=== PATIENT | male | born 1995 | race Two or more races ===

== ENCOUNTER 2017-06-13 10:32 | Emergency (ER) | payer MEDICAID ==
[~2017-06-13] VITALS: Ht 177.8 cm; Wt 74.8 kg
[~2017-06-13 10:32] MED LIST: AMOX500C2; HYDR-2598; OLIVE LEAF EXTRACT; ONDANSETRON HCL 8 MG TABLET; VALA1TAB28; [UNRECOGNIZED DRUG - OTHER]
[2017-06-13 10:40] VITALS: BP 137/87
== END 2017-06-13 11:45 | disposition left against medical advice (07) ==
LOC: ER 10:32
DX: R51 Headache (principal); Z53.21 Procedure and treatment not carried out due to patient leaving prior to being seen by health care provider

== ENCOUNTER 2024-05-28 15:26 | Emergency (ER) | payer SELFPAY ==
[~2024-05-28] VITALS: Ht 177.8 cm; Wt 68.1 kg
[~2024-05-28 15:26] MED LIST changes: +VALA1TAB; -VALA1TAB28
[2024-05-28 15:30] VITALS: BP 128/73; PULSE 100; RESP 20; O2SAT 99
[2024-05-28] MEDS ORDERED: SODIUM CHLORIDE 0.9% 1,000 ML IV ONE (15:45)
[2024-05-28] MEDS ORDERED: THIAMINE 100mg/ml INJ (200mg/2ml VIAL) IV ONE (15:45)
[2024-05-28] MEDS ORDERED: LORazepam 2MG/ML-1ML VIAL IV ONE (15:45)
[2024-05-28] MEDS: SODIUM CHLORIDE 0.9% 1,000 ML IV ONE (16:12)
== END 2024-05-28 16:19 | disposition left against medical advice (07) ==
LOC: EDBD 15:26 → ER 15:33
DX: F41.9 Anxiety disorder, unspecified (principal); F10.10 Alcohol abuse, uncomplicated; J45.909 Unspecified asthma, uncomplicated; Z88.1 Allergy status to other antibiotic agents; Z88.8 Allergy status to other drugs, medicaments and biological substances; Z88.2 Allergy status to sulfonamides; Z79.899 Other long term (current) drug therapy

== ENCOUNTER 2024-06-16 21:13 | Emergency (ER) | payer MEDICAID ==
[~2024-06-16] VITALS: Ht 177.8 cm; Wt 82.5 kg
[2024-06-16] MEDS: KETOROLAC TROMETH 60MG/2ML VIAL IM ONE (22:21)
[2024-06-16] MEDS: HYDROcodone-ACET 5/325MG TAB PO ONE (22:22)
[2024-06-16 22:50] VITALS: BP 129/96; PULSE 78; RESP 19; TEMP 97.9; O2SAT 97
[2024-06-17] MEDS ORDERED: IBUP-1456 PO (00:08)
[2024-06-17] MEDS ORDERED: HYDR2.5C39 TOP (00:08)
--- NOTE | 2024-06-17 00:08 | ED.PDOC ---
GI ASSESSMENT HPI Comments This is a 29-year-old male presents to the ED chief complaint rectal pain x1 week. Patient states history of hemorrhoids, notes itchiness, burning, and rectal pain. Reports intermittent constipation. Reports blood on the toilet paper. Denies gross blood or clots. 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 He denies chest pain, shortness of breath, difficulty breathing, or gross amount of blood in toilet or clots. Chief Complaint: Rectal Pain Time Seen by MD: 21:40 Primary Care Provider: LOIDA HERMAN Reviewed Notes: Nurses Notes, Medications, Allergies Allergies: Coded Allergies: Amphotericin B (Verified Allergy, Severe, ANAPHALAXIS, 06/30/11) Sulfa Antibiotics (Verified Allergy, Severe, 05/22/15) Vancomycin (Verified Allergy, Severe, RED MAN SYNDROME, 06/30/11) Ampicillin (Verified Allergy, Unknown, 06/13/17) Home Meds Active Scripts Ibuprofen (Ibuprofen) 800 Mg Tab, 1 TAB PO TID PRN for 5 Days, #15 TAB 1 Refill Prov:ALISE MACHUCA FUTURES TRADER 06/17/24 Hydrocortisone Base (Anusol-Hc) 2.5 % Cre, 1 APPLIC TOP BID for 7 Days, #30 GRAMS 1 Refill Prov:ALISE MACHUCA FUTURES TRADER 06/17/24 Reported Medications [Hydrocodone/Ace1 Ta9] (Hydrocodone/Acetaminophen) 1 TAB TAB No Conflict Check, TAB 08/28/12 [Ondansetron Hcl 8 Mg Tablet] No Conflict Check 08/28/12 [[id number] Mg] (Amoxicillin) 500 MG CAP No Conflict Check, MG 08/28/12 Shitake Mushroom (Shitake Mushroom) Mushroom Pow 06/30/11 [[place]ard Extract] No Conflict Check 06/30/11 Valacyclovir Hcl (Valtrex) 1 Gm Tab 06/30/11 Information Source: Patient Mode of Arrival: Ambulatory Past Medical History PAST MEDICAL HISTORY: Asthma Past Medical History (Other): Leukemia in remission x 12 years Surgical History: Denies all surgeries Family History Family History: Unknown Social History Smoker: Non-Smoker Alcohol: Heavy Drugs: Denies Drug Use Lives In: Home Constitutional: denies: chills, diaphoresis, fatigue, fever, malaise, sweats, weakness, others EENTM: denies: blurred vision, double vision, ear bleeding, ear discharge, ear drainage, ear pain, ear ringing, eye pain, eye redness, hearing loss, mouth pain, mouth swelling, nasal discharge, nose bleeding, nose congestion, nose pain, photophobia, tearing, throat pain, throat swelling, voice changes, others Respiratory: denies: cough, hemoptysis, orthopnea, SOB at rest, shortness of breath, SOB with excertion, stridor, wheezing, others Cardiovascular: denies: chest pain, dizzy spells, diaphoresis, Dyspnea on exertion, edema, irregular heart beat, left arm pain, lightheadedness, palpitations, PND, syncope, others Gastrointestinal: reports: rectal bleeding, rectal pain; denies: abdomen distended, abdominal pain, blood streaked bowels, constipated, diarrhea, dysphagia, difficulty swallowing, hematemesis, melena, nausea, poor appetite, poor fluid intake, vomiting, others Genitourinary: denies: burning, dysuria, flank pain, frequency, hematuria, incontinence, penile discharge, penile sore, pain, testicle pain, testicle swelling, urgency, others Neurological: denies: dizziness, fainting, headache, left sided numbness, left sided weakness, numbness, paresthesia, pre-existing deficit, right sided numbness, right sided weakness, seizure, speech problems, tingling, tremors, weakness, others Musculoskeletal: denies: back pain, gout, joint pain, joint swelling, muscle pain, muscle stiffness, neck pain, others Integumetry: denies: bruises, change in color, change in hair/nails, dryness, laceration, lesions, lumps, rash, wounds, others Allergic/Immunocompromised: denies: Difficulty Healing, Frequent Infections, Hives, Itching, others Hematologic/Lymphatic: denies: anemia, blood clots, easy bleeding, easy bruising, swollen glands, others Endocrine: denies: excessive hunger, excessive sweating, excessive thirst, excessive urination, flushing, intolerance to cold, intolerance to heat, unexplained weight gain, unexplained weight loss, others Psychiatric: denies: anxiety, bipolar disorder, depression, hopeless, panic disorder, schizophrenia, sleepless, suicidal, others Physical Exam General Appearance: No Apparent Distress, Normal HEENT: Pharynx Normal Neck: Full Range of Motion, Non-Tender Respiratory: Lungs Clear, No Respiratory Distress, Normal Breath Sounds Cardiovascular: No Murmur, Normal Peripheral Pulses, Regular Rate/Rhythm Breast Exam: Deferred Gastrointestinal: No Organomegaly, Non Tender, No Pulsatile Mass, Normal Bowel Sounds, Soft Genitalia: Deferred Pelvic: Deferred Rectal: Hemorrhoids (Non incarcerated hemorrhoid external) Extremities: Normal capillary refill, Normal inspection, Normal range of motion, Non-tender Musculoskeletal : Apperance: Normal Neurologic: Alert, hand sewer shoes II-XII nml as Tested, No Motor Deficits, Normal Affect, Normal Mood, No Sensory Deficits Cerebellar Function: Normal Reflexes: Normal Skin: Dry, Normal Color, Warm Lymphatic: No Adenopathy Was a procedure done? Was a procedure done?: No GI differential Dx Differential Diagnosis: Bacterial X-Ray, Labs, Meds, VS Vital Signs Date Time Temp Pulse Resp B/P (MAP) Pulse Ox O2 Delivery O2 Flow Rate FiO2 06/16/24 22:50 97.9 78 19 129/96 (107) 97 97.9 06/16/24 22:50 78 19 97 Room Air 06/16/24 21:22 98.3 80 16 140/85 (103) 99 Current Medications Medications (Trade) Dose Ordered Sig/Alvaro Route Start Time Stop Time Status Last Admin Ketorolac Tromethamine (Toradol Injection) 60 mg ONCE ONCE IM 06/16/24 22:15 06/16/24 22:16 DC 06/16/24 22:21 Acetaminophen/ Hydrocodone Bitart ([place] 5/325MG Tab) 1 tab ONCE ONCE PO 06/16/24 22:15 06/16/24 22:16 DC 06/16/24 22:22 X-Ray, Labs, Meds, VS Comment Likely hemorrhoid. Hemorrhoid cream sent ibuprofen sent. Patient given [place] 5 mg and Toradol 60 mg with relief in symptoms requesting discharge at this time. Advised to rest increase p.o. fluids, consider increasing daily fiber. Follow up with rectal surgeon for continued symptoms. Advised to return to the ER for increasing pain, uncontrolled bleeding, fevers, chills, nausea or vomiting. Patient agrees with discharge plan of care. Time of 1ST Reevaluation: 00:05 Reevaluation 1ST: Improved Patient Education/Counseling: Diagnosis, Treatment, Prognosis, Need For Follow Up Family Education/Counseling: No Family Present Departure 1 Departure Time of Disposition: 00:05 Impression: Primary Impression: External hemorrhoid Disposition: 01 HOME / SELF CARE / HOMELESS Condition: Stable e-Prescriptions Ibuprofen (Ibuprofen) 800 Mg Tab 1 TAB PO TID PRN for 5 Days, #15 TAB 1 Refill Prov: ALISE MACHUCA 06/17/24 Hydrocortisone Base (Anusol-Hc) 2.5 % Cre 1 APPLIC TOP BID for 7 Days, #30 GRAMS 1 Refill Prov: ALISE AMCHUCA 06/17/24 Discharged With: Self Critical Care Note Critical Care Time?: No Stability Stability form required: ALISE Pham Jun 17, 2024 00:08
== END 2024-06-17 00:13 | disposition home or self-care (01) ==
LOC: ER 21:13
DX: K64.4 Residual hemorrhoidal skin tags (principal); J45.909 Unspecified asthma, uncomplicated; K59.00 Constipation, unspecified; Z87.19 Personal history of other diseases of the digestive system; Z88.0 Allergy status to penicillin; Z88.1 Allergy status to other antibiotic agents; Z88.2 Allergy status to sulfonamides
CPT/HCPCS: 96372; 99283; J1885